=== PATIENT | female | born 1990 | race Caucasian/White ===

== ENCOUNTER → 2017-04-29 | Outpatient (CLI) | payer BC ==
--- NOTE | 2017-04-30 14:56 | US ---
EXAMINATION TYPE: US pelvis complete transvag DATE OF EXAM: 04/29/2017 COMPARISON: NONE CLINICAL HISTORY: R10.31 Right Lower Quad Pain. Irregular periods TECHNIQUE: Transvaginal (TV) and Transabdominal (TA) Date of LMP: 02/2017 EXAM MEASUREMENTS: Uterus: 7.0 x 3.2 x 4.3 cm Endometrial Stripe: 1.0 cm Right Ovary: 2.9 x 1.8 x 2.9 cm Left Ovary: 3.1 x 2.4 x 2.6 cm 1. Uterus: Anteverted heterogenous 2. Endometrium: wnl 3. Right Ovary: follicular cysts largest 1.4 x 1.1 x 2.1 cm 4. Left Ovary: follicular cysts . 5. Bilateral Adnexa: wnl 6. Posterior cul-de-sac: small amt free fluid IMPRESSION: Tiny amount of free fluid in pelvic cul-de-sac is nonspecific finding otherwise fairly un remarkable study.
== END | disposition home or self-care (01) ==
LOC: RADUSWWP 16:06
PROVIDERS: ATTEND Family Medicine
DX: N91.2 Amenorrhea, unspecified (principal); R10.31 Right lower quadrant pain
CPT/HCPCS: 76830; 76856

== ENCOUNTER 2018-04-28 14:03 | Outpatient (CLI) | payer BC ==
[2018-04-28 14:35] VITALS: TEMP 97.2
[2018-04-28 14:42] LABS: Appearance,Urine Clear (Clear); Bilirubin,Urine Negative (Negative); Blood,Urine Negative (Negative); Color,Urine Yellow; Glucose,Urine (UA) Negative (Negative); Ketones,Urine Negative (Negative); Leukocyte Esterase,Urine Trace (Negative); Mucus,Urine Rare /hpf; Nitrite,Urine Negative (Negative); PH, Urine 6.5 (5.0-8.0); Protein,Urine Negative (Negative); RBC,Urine 1 /hpf (0-5); Specific Gravity,Urine 1.011 (1.001-1.035); Squamous Epithelial Cell,Urine 1 /hpf (0-4); Urobilinogen,Urine <2.0 mg/dL (<2.0); WBC,Urine 3 /hpf (0-5)
[2018-04-28 15:47] LABS: ALT 16 U/L (9-52); AST 16 U/L (14-36); Blood Urea Nitrogen 10 mg/dL (7-17); LDH 434 U/L (313-618); Uric Acid 4.3 mg/dL (3.7-7.4)
[2018-04-28 15:50] LABS: Anisocytosis Slight; Basophils % (A) 0 %; Eosinophils # (A) 0.1 k/uL (0-0.7); Eosinophils % (A) 1 %; HCT 33.3 % (34.0-46.0); HGB 11.1 gm/dL (11.4-16.0); Lymphocytes # (A) 1.7 k/uL (1.0-4.8); Lymphocytes % (A) 18 %; MCHC 33.4 g/dL (31.0-37.0); Mean Platelet Volume 11.4; Monocytes # (A) 0.6 k/uL (0-1.0); Monocytes % (A) 6 %; Neutrophils # (A) 7.2 k/uL (1.3-7.7); Neutrophils % (A) 73 %; Platelet Count 144 k/uL (150-450); RBC 4.11 m/uL (3.80-5.40); RDW 16.3 % (11.5-15.5); WBC 9.9 k/uL (3.8-10.6)
[2018-04-28 16:27] LABS: Large Platelets Present
[2018-04-28 16:41] VITALS: BP 123/82; PULSE 101; RESP 18
--- NOTE | 2018-04-29 16:13 | P.MSEPDOC ---
Presenting Problems - Arrival Data Date of Arrival on Unit: 04/28/18 Time of Arrival on Unit: 14:12 Mode of Transport: Ambulatory - Complaint Comment: pt sent from office with elevated B/P and protein in urine. Medical History - Information : 1 Para: 0 Term: 0 : 0 Abortions: Spontaneous or Elective: 0 Number of Living Children: 0 - Gestational Age Gestational Age by OUSMANE (wks/days): 39 Weeks and 3 Days Review of Systems - Review of Systems Constitutional: No problems Breast: No problems ENT: No problems Cardiovascular: No problems Respiratory: No problems Gastrointestinal: No problems Genitourinary: No problems Musculoskeletal: No problems Neurological: No problems Skin: No problems Vital Signs - Temperature Temperature: 97.2 F Temperature Source: Temporal Artery Scan - Pulse Pulse Oximetery Pulse Rate: 101 Pulse Assessment Method: Automatic Cuff - Respirations Respiratory Rate: 18 Oxygen Delivery Method: Room Air - Blood Pressure Right Arm Blood Pressure: 123/82 Blood Pressure Mean: 95 Blood Pressure Source: Automatic Cuff Medical Screen Scoring (Pre) - Cervical Exam Dilation: Exam Deferred Effacement: Exam Deferred - Uterine Contractions Frequency: N/A Duration: N/A Intensity: N/A - Maternal Vital Signs Maternal Temperature: N/A Signs of Preeclampsia: N/A Maternal Respirations: N/A - Pain Assessment Pain Scale Used: Numeric (1 - 10) Pain Intensity: 0 - Maternal Trauma Maternal Trauma: N/A - Assessment Baseline FHR: 130 Heart Rate - NICHD Category: Category I (Normal) = 0 Position: N/A - Total Score Total Score (Pre): 0 - Level of Risk Level of Risk: Low (0-5) Physician Notification (Pre) - Physician Notified Spoke With: ivy Milner Order Received: Yes - Notification Comment Comment: discharge if labs wnl and reactive nst. to return mon am for ind of labor as scheduled Medical Screen Scoring (Post) - Cervical Exam Dilation: Exam Deferred Effacement: Exam Deferred Membranes: Intact - Uterine Contractions Frequency: N/A Duration: N/A Intensity: N/A - Maternal Vital Signs Maternal Temperature: N/A Maternal Blood Pressure: N/A Signs of Preeclampsia: N/A Maternal Respirations: N/A - Pain Assessment Pain Scale Used: Numeric (1 - 10) Pain Intensity: 0 - Maternal Trauma Maternal Trauma: N/A - Assessment Heart Rate: 135 Heart Rate - NICHD Category: Category I (Normal) = 0 NST: Reactive Position: N/A Station: N/A - Total Score Total Score (Post): 0 - Post Treatment Level of Risk Post Treatment Level of Risk: Low (0-5) Physician Notification (Post) - Physician Notified Physician Notified Date: 04/28/18 Physician Notified Time: 15:20 Physician/Practitioner Notified:: ivy Milner Order Received: Yes - Notification Comment Comment: discharge. to return mon am for sched ind of labor Disposition - Disposition OB Disposition: Discharge to home Discharge Date: 04/28/18 Discharge Time: 16:00 I agree with the RN Medical Screening Exam: Yes Risk & Benefit of care provided described in d/c instruction: Yes Diagnosis: GESTATIONAL HTN W/O SIGNIFICANT PROTEINURIA, THIRD TRIMESTER
== END 2018-04-28 16:00 | disposition home or self-care (01) ==
LOC: FBPOP 14:03
PROVIDERS: ATTEND Obstetrics & Gynecology
DX: O13.3 Gestational [pregnancy-induced] hypertension without significant proteinuria, third trimester (principal); Z3A.39 39 weeks gestation of pregnancy
CPT/HCPCS: 59025; 81001; 82565; 83615; 84450; 84460; 84520; 84550; 85025; 99215

== ENCOUNTER 2018-05-02 05:45 | Inpatient (IN) | payer BC ==
[2018-05-02] MEDS ORDERED: OXYTOCIN 20 UNITS/1000 ML NS 1,000 ML IV SCH ×2 (05:55→15:45)
[2018-05-02] MEDS ORDERED: LIDOCAINE 0.5% (PF) 5 MG/ML (50 ML SDV) SQ PRN (05:55)
[2018-05-02] MEDS ORDERED: OXYTOCIN 10 UNIT/ML 1 ML VIAL IM PRN (05:55)
[2018-05-02] MEDS ORDERED: CARBOPROST TROMETHAMINE 250 MCG/ML 1 ML AMP IM PRN (05:55)
[2018-05-02] MEDS ORDERED: METHYLERGONOVINE 0.2 MG/ML 1 ML AMP IM PRN (05:55)
[2018-05-02] MEDS ORDERED: TERBUTALINE 1 MG/ML VIAL SQ PRN (05:55)
[2018-05-02] MEDS: LACTATED RINGERS 1,000 ML IV SCH ×2 (06:04→11:00)
[2018-05-02 06:20] VITALS: BMI 31.9
[2018-05-02 06:25] LABS: Anisocytosis Slight; Basophils % (A) 0 %; Eosinophils # (A) 0.1 k/uL (0-0.7); Eosinophils % (A) 1 %; HCT 34.2 % (34.0-46.0); HGB 11.5 gm/dL (11.4-16.0); Lymphocytes # (A) 2.2 k/uL (1.0-4.8); Lymphocytes % (A) 20 %; MCH 26.9 pg (25.0-35.0); MCHC 33.5 g/dL (31.0-37.0); MCV 80.2 fL (80.0-100.0); Mean Platelet Volume 11.4; Monocytes # (A) 0.7 k/uL (0-1.0); Monocytes % (A) 6 %; Neutrophils # (A) 7.8 k/uL (1.3-7.7); Neutrophils % (A) 70 %; Platelet Count 157 k/uL (150-450); RBC 4.27 m/uL (3.80-5.40); RDW 16.6 % (11.5-15.5)
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
[2018-05-02] MEDS ORDERED: fentaNYL (PF) 50 MCG/ML 5 ML AMP ONE (10:25)
[2018-05-02] MEDS ORDERED: SODIUM CHLORIDE 0.9% 100 ML BAG ONE (10:25)
[2018-05-02] MEDS ORDERED: ROPIVACAINE 5MG/ML 20ML VIAL ONE (10:25)
[2018-05-02] MEDS ORDERED: BENZOCAINE/MENTHOL SPRAY 1 GM/SPRAY AEROSOL TOPICAL PRN (15:45)
[2018-05-02] MEDS ORDERED: SIMETHICONE 80 MG CHEWABLE PO PRN (15:45)
[2018-05-02] MEDS ORDERED: BISACODYL 10 MG SUPP RECTAL PRN (15:45)
[2018-05-02] MEDS ORDERED: Rhogam IMMUNE GLOBULIN 1,500 UNIT/1 ML IM ONE (15:45)
[2018-05-02] MEDS ORDERED: LANOLIN CREAM 5 GM TUBE TOPICAL PRN (15:45)
[2018-05-02] MEDS ORDERED: diphenhydrAMINE 25 MG CAP PO PRN (15:45)
[2018-05-02] MEDS ORDERED: diphenhydrAMINE 50 MG/ML 1 ML VIAL IVP PRN (15:45)
[2018-05-02] MEDS ORDERED: WITCH HAZEL 1 EACH MED..PAD TOPICAL PRN (15:45)
[2018-05-02] MEDS ORDERED: DIPH,PERTUS(ACELL)TETVAC-LF 0.5 ML VIAL IM ONE (15:45)
[2018-05-02] MEDS ORDERED: HYDROCORTISONE 2.5% RECTAL CREAM 30 GM TUBE RECTAL PRN (15:45)
[2018-05-02] MEDS ORDERED: ZOLPIDEM 5 MG TAB PO PRN (15:45)
[2018-05-02] MEDS ORDERED: ACETAMINOPHEN TAB 325 MG TAB PO PRN (15:45)
--- NOTE | 2018-05-02 17:10 | P.PROBDLV ---
Vaginal Delivery Note - . Vaginal Delivery Note: Normal vaginal delivery viable female Apgars 9 and 9 delivery time is 1509 hrs. Please see dictated H&P for intimate details of this patient's admission. Brief summary this is a pleasant 27-year-old 1 para 0 female 40-0/7 weeks gestation is admitted this morning for elective induction of labor. On admission patient is 2-3 cm dilated and 80% effaced is artificial rupture membranes for clear fluid. Labor is induced with Pitocin per protocol. Patient 's labor progresses and she is about 5 cm dilated gets an epidural for pain control. Patient continues to progress pushes for approximately just over an hour pushes the head to the perineum. Posterior perineum is supported we have controlled delivery of infant's head over the intact perineum. Mouth and nares are bulb suctioned. There is no evidence of a nuchal cord. With gentle downward traction we deliver the anterior and posterior shoulder and rest this 's body. This is a vigorous viable female Apgars are 9 and 9 delivery time is 1509 hrs. After delivery of the the is late on the mother's abdomen. The cord was allowed to stop pulsating and then is doubly clamped and cut and transected. We then have spontaneous delivery of the placenta. Inspection of the perineum shows a second-degree laceration which is repaired with 3-0 Vicryl in the usual fashion. Excellent reapproximation is noted. Estimated blood loss is approximately 200 mL. Her no complications. All counts are correct 3. and mother are stable delivery room. Cord blood was obtained for Rh status.
[2018-05-02] MEDS: SENNOSIDES-DOCUSATE SODIUM 1 EACH TAB PO SCH ×2 (19:39→20:03)
[2018-05-02] MEDS: IBUPROFEN 600 MG TAB PO PRN (23:29)
--- NOTE | 2018-05-03 06:35 | P.PNOBGVD ---
Subjective - Subjective Patient reports: Reports appetite normal, Reports voiding normally, Reports pain well controlled, Reports ambulating normally : doing well Objective - Latest Vital Signs Latest vital signs: Vital Signs Temp Pulse Resp BP 05/03/18 04:00 98.2 F 92 16 118/72 05/03/18 00:00 99.1 F 102 H 16 122/70 05/02/18 20:00 98.7 F 108 H 16 119/73 05/02/18 17:32 95 16 120/66 05/02/18 17:02 98.1 F 108 H 16 112/59 05/02/18 16:32 123 H 16 120/76 05/02/18 16:17 121 H 16 114/64 05/02/18 16:02 110 H 16 120/71 05/02/18 15:47 105 H 16 121/73 05/02/18 15:32 97.6 F 103 H 16 117/84 Intake and Output 05/02/18 05/02/18 05/03/18 14:59 22:59 06:59 Output Total 200 200 Balance -200 -200 Output: Urine 200 Estimated Blood Loss 200 Other: # Voids 1 - Exam Lungs: bilateral: normal Chest: Normal S1, Normal S2 Extremities: Present: normal Abdomen: Present: normal appearance, soft Uterus: Present: normal, firm - Labs Labs: Abnormal Lab Results - Last 24 Hours (Table) 05/02/18 Range/Units 06:05 WBC 11.0 H (3.8-10.6) k/uL RDW 16.6 H (11.5-15.5) % Neutrophils # 7.8 H (1.3-7.7) k/uL Assessment and Plan Assessment: day #1. Patient is resting without complaints and wishes to go home. Vital signs are stable she is afebrile. Uterus is firm nontender she's having normal lochia. I impression is a normal course. Plan is to continue routine care and discharge home later today. (1) 40 weeks gestation of Current Visit: Yes Status: Acute Code(s): Z3A.40 - 40 WEEKS GESTATION OF SNOMED Code(s): 48659183 (2) Elective induction of labor planned Current Visit: Yes Status: Acute Code(s): ECF0143 - SNOMED Code(s): 915240041 (3) Rh negative status during Current Visit: Yes Status: Acute Code(s): O26.899 - OTH RELATED CONDITIONS, UNSPECIFIED TRIMESTER; Z67.91 - UNSPECIFIED BLOOD TYPE, RH NEGATIVE SNOMED Code(s): 404171166
--- NOTE | 2018-05-03 06:42 | P.DS ---
Providers Date of admission: 05/02/18 05:45 Expected date of discharge: 05/03/18 Attending physician: Jose Guadalupe Moore Primary care physician: Stated None - Discharge Diagnosis(es) (1) 40 weeks gestation of Current Visit: Yes Status: Acute (2) Elective induction of labor planned Current Visit: Yes Status: Acute (3) Rh negative status during Current Visit: Yes Status: Acute Hospital Course: Please see dictated H&P for intimate details of this patient's admission. Brief summary is a pleasant 27-year-old 1 para 0 female 40-0/7 weeks gestation is admitted to labor and delivery for induction of labor. Patient admitted she is uncomplicated induction of labor goes on to have a vaginal delivery viable female infant. Please see dictated delivery note. day 1 patient without complaints she wishes to go home. Patient's felt be stable for discharge home follow up with me in 6 weeks. Procedures: Induction of labor normal vaginal delivery Patient Condition at Discharge: Good Plan - Discharge Summary New Discharge Prescriptions: New Ibuprofen [Motrin] 600 mg PO Q6HR PRN #40 tab PRN Reason: Mild Pain Or Fever >= 100.5 No Action Pnv No.95/Ferrous Fum/Folic AC [ Multivitamin Tablet] 1 each PO DAILY Discharge Medication List Pnv No.95/Ferrous Fum/Folic AC [ Multivitamin Tablet] 1 each PO DAILY [History] Ibuprofen [Motrin] 600 mg PO Q6HR PRN #40 tab 05/03/18 [Rx] Follow up Appointment(s)/Referral(s): Jose Guadalupe Moore MD [STAFF PHYSICIAN] - 06/13/18 11:15 am Patient Instructions/Handouts: Vaginal Delivery (DC) Activity/Diet/Wound Care/Special Instructions: No intercourse or anything per vagina for 6 weeks. Please call if any fever, chills, excessive vaginal bleeding, and/or abdominal pain. Discharge Disposition: HOME SELF-CARE
[2018-05-03] MEDS: IBUPROFEN 600 MG TAB PO PRN (16:24)
[2018-05-03] MEDS: SENNOSIDES-DOCUSATE SODIUM 1 EACH TAB PO SCH (16:26)
[2018-05-03 18:54] VITALS: BP 128/78; PULSE 109; RESP 18; TEMP 98.6
== END 2018-05-03 17:15 | disposition home or self-care (01) | DRG 807 ==
LOC: 4FBP 05:45
PROVIDERS: ADMIT Obstetrics & Gynecology; ATTEND Obstetrics & Gynecology
PROC: 10E0XZZ Delivery of Products of Conception, External Approach (ICD-10-PCS; principal; 2018-05-02)
PROC: 0KQM0ZZ Repair Perineum Muscle, Open Approach (ICD-10-PCS; 2018-05-02)
PROC: 10907ZC Drainage of Amniotic Fluid, Therapeutic from Products of Conception, Via Natural or Artificial Opening (ICD-10-PCS; 2018-05-02)
PROC: 3E033VJ Introduction of Other Hormone into Peripheral Vein, Percutaneous Approach (ICD-10-PCS; 2018-05-02)
PROC: 00HU33Z Insertion of Infusion Device into Spinal Canal, Percutaneous Approach (ICD-10-PCS; 2018-05-02)
PROC: 3E0R3BZ Introduction of Anesthetic Agent into Spinal Canal, Percutaneous Approach (ICD-10-PCS; 2018-05-02)
DX: O99.42 Diseases of the circulatory system complicating childbirth (principal); R03.0 Elevated blood-pressure reading, without diagnosis of hypertension; O26.893 Other specified pregnancy related conditions, third trimester; O70.1 Second degree perineal laceration during delivery; Z37.0 Single live birth; Z3A.40 40 weeks gestation of pregnancy; Z67.91 Unspecified blood type, Rh negative
CPT/HCPCS: 85025; 85461; 86850; 86870; 86880; 86900; 86901; 90715